=== PATIENT | female | born 1955 | race Caucasian/White ===

== ENCOUNTER 2024-01-16 12:47 | Emergency (ER) | payer OTHER, SELFPAY ==
[2024-01-16 12:49] VITALS: BP 130/72
--- NOTE | 2024-01-16 12:50 | ED.PDOC.TRB ---
ED Provider Triage
-
Patient seen by provider in Triage?: Seen in Triage
A medical screening examination has been initiated by a qualified medical provider. Based on the assessment performed at this time, it has been determined that an emergent medical condition may exist and the patient has been informed that further
medical evaluation and possible additional diagnostic testing may be needed.
HPI: This is a medical evaluation conducted in person to initiate diagnostic evaluation and provide initial therapeutics. Please see further documentation by the treating clinician.
GENERAL: Alert ,tearful
EYE: No visual abnormalities.
NECK: Trachea midline
ENT: No visible abnormalities.
LUNGS: No acute respiratory distress
NEUROLOGICAL: Alert and oriented
SKIN: no visible lesions.
MUSCULOSKELETAL: Moving extremities normally
PSYCH: Normal and appropriate interaction.
60-year-old female presenting to the emergency department concerns of lower abdominal pain few days reproducible to the right lower quadrant and left lower quadrant no other abdominal pain. Has had decreased bowel movements over the past few months
as well. Has had intermittent symptoms with past few months as well. Bowel movements have been relatively loose recently but once a day. Concern the patient's reproducible pain and advanced age had no recent colonoscopy plan for CT scan for
further assessment.
[2024-01-16 13:14] VITALS: BMI 20.5
[2024-01-16 13:40] LABS: Urine Albumin Negative (Neg - Trace); Urine Bilirubin Negative (Negative); Urine Character Clear (Clear); Urine Color Yellow; Urine Glucose Negative (Negative); Urine Ketone Negative (Negative); Urine Leukocyte Trace (Negative); Urine Nitrite Negative (Negative); Urine Occult Blood Negative (Negative); Urine Urobilinogen Negative (Neg - 1+)
[2024-01-16 13:43] LABS: ALT (SGPT) 15 U/L (0-35); AST (SGOT) 25 U/L (14-36); Albumin 4.8 g/dl (3.5-5.0); Alkaline Phosphatase 81 U/L (38-126); Blood Urea Nitrogen 11 mg/dl (7-17); Calcium 10.2 mg/dl (8.4-10.2); Carbon Dioxide 26 mmol/L (22-30); Chloride 103 mmol/L (98-107); Estimated Creatinine Clearance 85 ml/min; Glucose 97 mg/dl (70-99); Potassium 4.4 mmol/L (3.5-5.1); Sodium 140 mmol/L (135-145); Total Bilirubin 0.5 mg/dl (0.2-1.3); eGFR > 60.00
[2024-01-16 13:48] LABS: % Basophils 0.2 % (0-2); % Eosinophils 1.4 % (0-6); % Immature Granulocytes 0.2 % (0-0.5); % Lymphocytes 27.7 % (20.5-51.1); % Monocytes 8.3 % (1.7-9.3); % Neutrophils 62.2 % (42.2-75.2); Absolute Eosinophils 0.1 10^3/uL (0-0.7); Absolute Lymphocytes 1.7 10^3/uL (1.2-3.4); Absolute Monocytes 0.5 10^3/uL (0.1-0.6); Absolute Neutrophils 3.9 10^3/uL (1.4-6.5); Hematocrit 38.9 % (37.0-47.0); Hemoglobin 13.3 g/dL (12.0-16.0); Mean Corp Hgb Conc. 34.2 g/dL (33.0-37.0); Mean Corpuscular Hgb 30.8 pg (27.0-31.0); Mean Platelet Volume 8.8 fL (7.4-10.4); Nucleated Red Blood Cells % 0 %; Platelet Count 303 10^3/uL (130-400); Red Blood Cell Count 4.32 10^6/uL (4.20-5.40); Red Cell Dist. Width 12.7 % (11.5-14.5); White Blood Cell Count 6.3 10^3/uL (4.8-10.8)
[2024-01-16 14:00] VITALS: BP 118/67
[2024-01-16 14:02] LABS: Urine Bacteria Few (Negative); Urine Squamous Cell 0-2 /LPF (Few)
[2024-01-16 14:03] LABS: Urine Red Blood Cell 0-2 /HPF (0-2); Urine White Cell 0-2 /HPF (0-5)
[2024-01-16] MEDS: BENTYL 20 MG PO (14:12)
--- NOTE | 2024-01-16 14:49 | ED.GENMED ---
History of Present Illness
General
Chief Complaint: Abdominal Pain
Source: patient
Exam Limitations: none
Time Seen by Provider: 01/16/24 13:27
Nursing documentation reviewed up to this point in time: agreed with
History of Present Illness
History of Present Illness:
68 y/o F with h/o IBS
here with lower abd pain intermittently x 1 month
says she feels sometimes it may be gas pains but it has been bothering her
she has a regimen to help prevent constiaption, takes metamucil, miralax, sometimes mag cittrate
she has seen previous GI doctor with [facility] but doesn't like them. she has had diverticulosis on colonoscopy previously as well
rarely had diverticulitis
had CT scan in october for similar pain and was told she had colitis and to eat bland diet, no abx.
denies fever, chills, vomiting, nausea, urinary sypmtoms, diarrhea, bloody stool
the pain does travel to her back
it feels better now than when she first got here
Past History
Past History
ED Past Medical History: Other (IBS)
ED Past Surgical History: None
Social History
Tobacco: Non-smoker
Review of Systems
Review of Systems
Allergies reviewed?: Yes
All Other Systems: Not applicable
Phy Exam
Physical Exam
Physical Exam:
GENERAL: Alert , in no apparent distress very comfortable and well-appearing
EYE: pupils equal and reactive
NECK: Supple
ENT: o/p clr, mmm.
CARDIAC: Regular rate and rhythm .
LUNGS: Clear breath sounds bilaterally, no acute respiratory distress, no wheezes/rales/rhonchi
ABDOMEN: Soft, minimal lower abdominal tenderness, no r/g, no cvat, normal bowel sounds
NEUROLOGICAL: Alert and oriented, no focal neuro deficits
SKIN: Warm and dry, skin intact.
MUSCULOSKELETAL: No edema, well perfused.
PSYCH: Normal and appropriate interaction.
Course
Orders/Labs/Results
Orders:
Orders
01/16/24 12:54
CT Abd/Pel (IV only)-[facility] only Urgent
Comment:
Reason For Exam: lower abd pain, maximal to RLQ pain
01/16/24 13:02
Complete Blood Count/With Diff Urgent
Comprehensive Metabolic Panel Urgent
01/16/24 13:07
Urinalysis Reflex To Culture Urgent
Date Specimen was Collected: 01/16/24
Time Specimen was Collected: 12:56
Urine Microscopic Reflex Cult Urgent
01/16/24 14:03
Dicyclomine [Bentyl] 20 mg PO NOW STA
Abnormal Lab Results
01/16/24
13:07
Leukocyte Esterase Rfl Trace A
(Negative)
Urine Bacteria (Reflex) Few A
(Negative)
01/16/24 13:02
01/16/24 13:02
Vital Signs
Initial and Last Documented VS:
Initial Vital Signs
Temp Pulse Resp BP Pulse Ox
98.9 F 62 18 130/72 97
01/16/24 12:49 01/16/24 12:49 01/16/24 12:49 01/16/24 12:49 01/16/24 12:49
Last Documented Vital Signs
Temp Pulse Resp BP Pulse Ox
98.9 F 45 17 116/61 99
01/16/24 12:49 01/16/24 16:16 01/16/24 16:16 01/16/24 16:16 01/16/24 14:00
MDM/Problems Addressed
Differential Diagnosis Includes:
diverticulitis, colitis, ibs, gas pain
MDM/Problems Addressed:
68 y/o F with colitis, ibs, divertic
loewr abd pain x 1 mo
similar to previous IBS
gets cramping
has had some constiaption but isn't always compliant with meds regimen
she decided to come be seen today because she thought it was time to get checked
pain waxes and wanes
currnetly not severe
minimal if any tendrernes
bowel sounds present
w/u here shows mild colitis on CT
otherwise normal labs
no sdiarrhea
no fever
normal wbc
recommend gi f/u
hold abx currently
bland diet
bnetyl for pain which helped her hree.
*Critical Care Note
Total Time (30-74mins, 75-104mins- exclusive of procedures): Not Applicable
ED Attending Note
-
Portions of this chart may have been created with voice recognition software.� Occasional wrong word or��sound alike� substitutions may have occurred due to the inherent limitations of voice recognition software.
Discharge Plan
Departure
Patient Disposition: Home (Routine Discharge)
Date of Disposition: 01/16/24
Time of Disposition: 16:10
Patient with high blood pressure during this ER visit?: No
Condition: Fair
Covid-19: Not Applicable
Discharge Problem:
Abdominal pain, IBS (irritable bowel syndrome), Colitis
Instructions: Colitis (DC), Abdominal Pain
Prescriptions:
New
dicyclomine 20 mg tablet
20 mg PO QID PRN (Reason: abdominal pain) Qty: 15 0RF
No Action
aspirin 81 MG tablet,delayed release (DR/EC)
81 mg PO DAILY
prednisone 20 MG tablet
20 mg PO DAILY Qty: 5 0RF
oxycodone-acetaminophen 5 MG/325 MG tablet
1 tab PO Q4HPRN PRN (Reason: pain) Qty: 15 0RF
Referrals:
Delfina Esposito MD [Active] - Follow up in 10 days (GI)
Activity Restrictions/Additional Instructions:
The CAT scan did show very subtle findings suggestive of mild colitis. You should follow-up with a GI doctor. In the meantime you can try dicyclomine 2-4 times a day only as needed for crampy abdominal pain
Make sure you use your MiraLAX to help with getting a stool out of your colon.
Return for fever, bloody diarrhea or severe pain. Otherwise follow-up with GI
Interventions
Interventions:
*Risk Screen - Suicide Last Done: 01/16/24 12:56
*General Assessment Last Done: 01/16/24 12:56
*Neglect/Abuse Screening Last Done: 01/16/24 12:56
ED- Fall Risk Assessment Last Done: 01/16/24 13:11
*Nursing Disposition Last Done: 01/16/24 16:16
LV-Wzwucc-Mtohrlcxif Assessment Last Done: 01/16/24 13:11
Discharge Date and Time
Discharge Date/Time: 01/16/24 16:29
Print Language: SOMALI
[2024-01-16 16:16] VITALS: BP 116/61
== END 2024-01-16 16:29 | disposition home or self-care (01) ==
LOC: EMR 12:47
PROVIDERS: Physician Assistant; EMERGENCY PHYSICIAN Emergency Medicine; FAMILY PHYSICIAN Family Medicine
DX: R10.30 Lower abdominal pain, unspecified (principal); K52.9 Noninfective gastroenteritis and colitis, unspecified
CPT/HCPCS: 99284; 74177; 80053; 81003; 81015; 85025; Q9967